=== PATIENT | male | born 1990 | race Caucasian/White ===

== ENCOUNTER 2017-03-06 15:49 | Emergency (ER) | payer OTHER ==
[~2017-03-06] VITALS: Ht 182.9 cm; Wt 78.7 kg
[~2017-03-06 15:49] MED LIST: KEFLEX500 MG PO; PERCOCET 5/31 TABLET PO
[2017-03-06] MEDS ORDERED: MOTRIN600 MG PO (17:36)
[2017-03-06 17:43] VITALS: BP 121/76
== END 2017-03-06 17:44 | disposition home or self-care (01) ==
LOC: EME 15:49
DX: S06.0X0A Concussion without loss of consciousness, initial encounter (principal); M79.671 Pain in right foot; V47.1XXA Car passenger injured in collision with fixed or stationary object in nontraffic accident, initial encounter; Y92.410 Unspecified street and highway as the place of occurrence of the external cause; F17.200 Nicotine dependence, unspecified, uncomplicated
CPT/HCPCS: 70450; 71020; 72125; 73630; 99281; 99284

== ENCOUNTER 2017-03-08 12:07 | Emergency (ER) | payer OTHER ==
[~2017-03-08] VITALS: Ht 182.9 cm; Wt 80.3 kg
[~2017-03-08 12:07] MED LIST changes: +MOTRIN600 MG PO
[2017-03-08 13:35] VITALS: BP 131/100
== END 2017-03-08 13:35 | disposition home or self-care (01) ==
LOC: EME 12:07
DX: S60.222A Contusion of left hand, initial encounter (principal); V49.9XXA Car occupant (driver) (passenger) injured in unspecified traffic accident, initial encounter; Y92.410 Unspecified street and highway as the place of occurrence of the external cause; F17.200 Nicotine dependence, unspecified, uncomplicated
CPT/HCPCS: 73130; 99281; 99283